=== PATIENT | female | born 1985 | race Caucasian/White ===

== ENCOUNTER → 2019-04-25 | Outpatient (CLI) | payer BC ==
--- NOTE | 2019-04-25 12:42 | US ---
EXAMINATION TYPE: US thyroid st tissue head/neck DATE OF EXAM: 04/25/2019 COMPARISON: NONE CLINICAL HISTORY: 33-year-old female E04.9 GOITER. Patient states known nodule and FNA on left. TECHNIQUE: Multiple sonographic images of the thyroid gland are obtained. FINDINGS: GLAND SIZE: Right Lobe: 5.0 x 1.2 x 2.0 cm Overall Parenchyma: homogenous Left Lobe: 4.8 x 1.6 x 2.0 cm Overall Parenchyma: homogeneous Isthmus Thickness: 0.2 cm NODULES RIGHT: # of nodules measured on right: 0 LEFT: # of nodules measured on left: 2 1. 1.4 X 1.1 x 1.1 cm hypoechoic solid nodule at the lower pole with well-defined margins. This no dule is wider than tall and shows intranodular vascularity. Prior size: no prior here 2. 0.5 X 0.5 x 0.5 cm cyst at the upper pole with well-defined margins. This nodule is wider than t all and shows no intranodular vascularity. Prior size: no prior here ISTHMUS: # of nodules measured in the isthmus: 0 Bilateral neck scanned, no evidence of lymphadenopathy. IMPRESSION: 1. Borderline thyromegaly. 2. A 1.4 cm solid nodule at the left lower pole. Correlate prior FNA results. Additional follow-up as indicated. 3. Additional small 5 mm cyst left upper pole.
== END | disposition home or self-care (01) ==
LOC: RADUSWWP 12:09
PROVIDERS: ATTEND Family Medicine
DX: E04.2 Nontoxic multinodular goiter (principal)
CPT/HCPCS: 76536